=== PATIENT | male | born 1950 | race Caucasian/White ===

== ENCOUNTER → 2017-02-09 | Outpatient (CLI) | payer OTHER ==
[~2017-02-09] MED LIST: GADAVIST IV PRN; GARLTAB3 PO
--- NOTE | 2017-02-09 13:04 | DIAGNOSTIC IMAGING REPORT ---
MRI OF THE BRAIN COMBO CLINICAL HISTORY: Follow-up cavernomas. COMPARISON STUDY: MRI of the brain dated 04/04/2016 and 02/26/2015. TECHNIQUE: MRI of the brain was performed utilizing various T1 and T2-weighted sequences in the axial, sagittal, and coronal planes. Contrast-enhanced sequences were acquired following the administration of 9 cc of Gadavist. FINDINGS: Brain parenchyma: There is unchanged appearance of numerous (at least 5) mixed signal intensity lesions containing foci of hemosiderin throughout the left hemisphere as compared to studies dating back to 02/26/2015. The largest measures 1.1 cm and is located adjacent to frontal horn of the left lateral ventricle. The appearance is typical for multiple cavernomas. Several of these demonstrate faint internal enhancement. There is no evidence of hemorrhage at the time of examination. A tiny focus of signal abnormality seen within the left aspect of the nate is unchanged and may represent a tiny chronic lacunar infarct. There is no mass effect. There is minimal periventricular microangiopathic change. There is no restricted diffusion to suggest acute ischemia. Bella-white matter differentiation is preserved. No extra-axial fluid collection is seen. The cerebellar tonsils are normal in configuration. Ventricles, sulci, and cisterns: Normal in configuration. Pituitary and sella: Unremarkable. Intracranial vasculature: Normal flow voids are maintained at the skull base. Orbits: The bony orbits are grossly intact. Orbital contents are normal in appearance. Sinuses and mastoids: Clear. Calvarium: Unremarkable. Cervical cord: Partially visualized cervical spinal cord is normal in morphology and signal intensity. IMPRESSION: 1. No acute intracranial abnormality. 2. There is been no significant change in the appearance of numerous left hemispheric cavernoma is as compared to 02/26/2015. Electronically signed by: Tee De La Rosa M.D. 02/09/2017 1:03 PM Dictated Date/Time: 02/09/2017 12:56 PM
== END | disposition home or self-care (01) ==
LOC: C.MRIBC 11:48
PROVIDERS: ATTEND Psychiatry & Neurology Neurology
DX: Q28.3 Other malformations of cerebral vessels (principal)